=== PATIENT | male | born 1995 | race African-American/Black ===

== ENCOUNTER 2022-02-09 16:50 | Emergency (ER) | payer SELFPAY ==
[2022-02-09] VITALS (13 sets, daily range): BP systolic 132–148; BP diastolic 84–108; PULSE 109–136; RESP 17–33; TEMP 36.7; O2SAT 99–100
--- NOTE | 2022-02-09 16:58 | ED.ARRPALP ---
HPI - Arrhythmia/Palpitations General Chief Complaint: Arrhythmia/Palpitations Stated Complaint: Left Arm Tinging, Vision Issues, Heart Fast Time Seen by Provider: 02/09/22 16:58 History of Present Illness HPI narrative: Patient is a 26-year-old male presenting with palpitations. Patient states that he was walking when he started having an argument with his girlfriend. He then developed palpitations. States that his left arm feels tingly but he denies chest pain or shortness of breath. No lightheadedness. Denies recent fevers or chills, cough, abdominal pain, nausea or vomiting, diarrhea, leg swelling, dysuria. Related Data Allergies Allergy/AdvReac Type Severity Reaction Status Date / Time azithromycin Allergy Anaphylaxis Verified 02/09/22 17:33 Penicillins Allergy Anaphylaxis Verified 02/09/22 17:33 Review of Systems Review of Systems: All systems reviewed & are unremarkable except as noted in HPI and below Exam Narrative: GENERAL: Well-appearing, well-nourished, anxious appearing HEAD: Normocephalic, atraumatic. EYES: PERRLA and EOMI. ENT: Nares clear, no rhinorrhea or epistaxis. Mucous membranes moist. NECK: Supple. CHEST: Clear to auscultation. No respiratory distress. HEART: Tachycardic, regular rhythm. No murmur heard. Normal peripheral pulses. ABDOMEN: Soft, nontender, nondistended, normal active bowel sounds. EXTREMITIES: Normal range of motion. No edema. SKIN: Warm, dry, no rash. NEURO: No focal deficits. Alert and oriented x3. PSYCH: Normal mood and affect. Course Course Emergency Course: Patient is a 26-year-old male presenting with palpitations. Patient is tachycardic in the 130s to 140s. Normotensive and saturating well on room air. Exam otherwise remarkable for the above. EKG per my interpretation shows sinus tachycardia, normal axis and intervals, no ST elevations or depressions. Blood work is remarkable for elevated creatinine. Troponin is undetectable x2. Patient received fluids with improvement in his heart rate. Still mildly tachycardic in the low 100s. On reevaluation, the patient states that he feels much better. States that he has not had any water for several days. States he has been working a lot. Denies any pain or shortness of breath. Strongly advised him to increase his fluid intake. Advised PCP follow-up. Strict return precautions given. Patient discharged in stable condition. Vital Signs Vital signs: Vital Signs Temperature 98.1 F 02/09/22 16:53 Pulse Rate 135 H 02/09/22 16:53 Respiratory Rate 22 H 02/09/22 16:53 Blood Pressure 148/105 H 02/09/22 16:53 Pulse Oximetry 100 02/09/22 16:53 Temperature 98.1 F 02/09/22 16:53 Pulse Rate 109 H 02/09/22 21:33 Respiratory Rate 20 02/09/22 21:33 Blood Pressure 135/90 02/09/22 21:33 Pulse Oximetry 100 02/09/22 21:33 MDM - Arrhythmia/Palpitations Lab Data Result diagrams: 02/09/22 17:33 02/09/22 17:33 Labs: Lab Results 02/09/22 02/09/22 02/09/22 Range/Units 17:33 17:33 20:49 WBC 9.9 (4.5-10.0) K/mm3 RBC 6.12 (4.6-6.20) M/mm3 Hgb 17.6 (14.0-18.0) g/dL Hct 53.4 H (42.0-52.0) % MCV 87.3 (80-100) fl MCH 28.8 (26-34) pg MCHC 33.0 (32-36) g/dl RDW 14.5 (11.5-14.5) % Plt Count 406 H (150-375) k/mm3 MPV 9.0 (7.4-10.4) fl Immature Gran % (Auto) 0.3 (0-0.5) % Neut % (Auto) 67.6 (45.5-73.1) % Lymph % (Auto) 23.3 (18.3-44.2) % [place] % (Auto) 8.3 (2.6-8.5) % Eos % (Auto) 0.1 (0-4.4) % Baso % (Auto) 0.4 (0.2-1.2) % Lymph # (Auto) 2.30 (0.9-3.2) K/mm3 [place] # (Auto) 0.8 H (0.1-0.6) K/mm3 Eos # (Auto) 0.0 (0-0.3) K/mm3 Baso # (Auto) 0.0 (0.0-0.1) K/mm3 Abs Immat Gran (auto) 0.03 (0.00-0.031) K/mm3 Absolute Neuts (auto) 6.7 (1.3-6.7) K/mm3 Absolute Nucleated RBC 0.0 (0.0-0.012) K/mm3 Nucleated RBC % 0.0 (0.0-0.2) % Sodium 141 (137-145) mmol/L [place]
--- NOTE | 2022-02-09 17:01 | ECG_ITS ---
Measurements Intervals [place] Rate: 134 P: 49 UT: 144 QRS: 52 QRSD: 84 T: 9 QT: 290 QTc: 434 Interpretive Statements SINUS TACHYCARDIA NONSPECIFIC T-WAVE ABNORMALITY BORDERLINE ECG NO PREVIOUS ECG AVAILABLE FOR COMPARISON Electronically Signed On 02-15-2022 16:34:00 CDT by Maxx Fregoso M.D.
[2022-02-09] MEDS: SODIUM CHLORIDE 0.9% IV 1,000 ML 999 ML IV CONT ×2 (17:34→18:51)
[2022-02-09] MEDS: Please add drug allergy info to patient profile. 1 EACH XX (17:35)
[2022-02-09 17:39] LABS: Basophils Percent Auto 0.4 % (0.2-1.2); Eosinophils Percent Auto 0.1 % (0-4.4); Hematocrit 53.4 % (42.0-52.0); Hemoglobin 17.6 g/dL (14.0-18.0); Immature Granulocyte Absolute 0.03 K/mm3 (0.00-0.031); Immature Granulocyte Percent A 0.3 % (0-0.5); Lymphocytes Percent Auto 23.3 % (18.3-44.2); Mean Corpuscular Hemoglobin 28.8 pg (26-34); Mean Corpuscular Volume 87.3 fl (80-100); Monocytes Absolute Auto 0.8 K/mm3 (0.1-0.6); Monocytes Percent Auto 8.3 % (2.6-8.5); Neutrophils Absolute Auto 6.7 K/mm3 (1.3-6.7); Neutrophils Percent Auto 67.6 % (45.5-73.1); Platelet Count Result 406 k/mm3 (150-375); Red Blood Count 6.12 M/mm3 (4.6-6.20); Red Cell Distribution Width 14.5 % (11.5-14.5); White Blood Count 9.9 K/mm3 (4.5-10.0)
[2022-02-09 18:04] LABS: Alanine Aminotransferase 28 U/L (6-50); Albumin Level 4.8 g/dL (3.5-5.1); Alkaline Phosphatase 79 U/L (38-126); Anion Gap 16 mmol/L (8-16); Aspartate Amino Transferase 40 U/L (17-59); Bilirubin,Total 1.8 mg/dL (0.2-1.3); Blood Urea Nitrogen 13 mg/dL (9-20); Calcium 9.3 mg/dL (8.4-10.2); Carbon Dioxide 24 mmol/L (22-30); Chloride 101 mmol/L (98-107); Estimated CRCL calculation 89 ml/min; Estimated Glomerular Filt Rate > 60; Glucose 93 mg/dL (65-110); Magnesium 2.3 mg/dL (1.6-2.3); Sodium 141 mmol/L (137-145)
[2022-02-09 18:07] LABS: Troponin I < 0.012 ng/mL (0.000-0.034)
--- NOTE | 2022-02-09 19:15 | PC.NURSE ---
Report received from ERIC Savage. Assumed care of patient at this time.
[2022-02-09 21:15] LABS: Troponin I < 0.012 ng/mL (0.000-0.034)
== END 2022-02-09 21:35 | disposition home or self-care (01) ==
PROVIDERS: Emergency Provider Emergency Medicine
DX: R00.2 Palpitations (principal); E86.0 Dehydration
CPT/HCPCS: 36415; 80053; 83735; 84484; 85025; 93005; 96360; 96361; 99284; J7030

== ENCOUNTER 2022-02-23 16:51 | Emergency (ER) | payer OTHER, SELFPAY ==
--- NOTE | ~2022-02-23 | XR_ITS ---
EXAM: XR finger 1st LT min 2V DATE: 02/23/2022 18:00 HISTORY: avulsed laceration end of Lt thumb, cut with knife this P.M. . COMPARISON: None available. FINDINGS: Normal mineralization. No fracture or dislocation. No lytic or blastic lesion. Joint space s are maintained. No erosion or periosteal change. Bandage material obscures radiographic detail in t he frontal view. Possible laceration at the tip of the thumb. IMPRESSION: No acute osseous finding in the left thumb. Reviewed, dictated and finalized at location K.
[2022-02-23 16:52] VITALS: BP 182/85; PULSE 100; RESP 16; TEMP 36.6; O2SAT 98
--- NOTE | 2022-02-23 18:07 | ED.WOUNDLAC ---
HPI - Wound/Laceration General Chief Complaint: Wound/Laceration <Anel Cabrera PA-C - Last Filed: 02/23/22 18:44> Stated Complaint: L THUMB LACERATION <Anel Cabrera PA-C - Last Filed: 02/23/22 18:44> Time Seen by Provider: 02/23/22 17:46 <Anel Cabrera PA-C - Last Filed: 02/23/22 18:44> Source: patient <Anel Cabrera PA-C - Last Filed: 02/23/22 18:44> Mode of arrival: ambulatory <Anel Cabrera PA-C - Last Filed: 02/23/22 18:44> Limitations: no limitations <Anel Cabrera PA-C - Last Filed: 02/23/22 18:44> History of Present Illness HPI narrative: This is a 26-year-old male that presents to the emergency department for a laceration to the left first finger sustained earlier today at work. Reports he was cutting chicken and sustained a laceration that involved his nail. He is up-to-date on his tetanus vaccine. Denies decreased range of motion or numbness. <Anel Cabrera PA-C - Last Filed: 02/23/22 18:44> Related Data Allergies/Adverse Reactions: Allergies Allergy/AdvReac Type Severity Reaction Status Date / Time azithromycin Allergy Anaphylaxis Verified 02/09/22 17:33 Penicillins Allergy Anaphylaxis Verified 02/09/22 17:33 <Anel Cabrera PA-C - Last Filed: 02/23/22 18:44> Review of Systems Review of Systems: CONSTITUTIONAL: Denies fever SKIN: Reports laceration NEUROLOGIC: Denies numbness <Anel Cabrera PA-C - Last Filed: 02/23/22 18:44> All systems reviewed & are unremarkable except as noted in HPI and below <Anel Cabrera PA-C - Last Filed: 02/23/22 18:44> [facility] [place] Surgical History Surgical History: Surgical History (Updated 02/23/22 @ 18:09 by Anel Cabrera PA-C) History of tonsillectomy <Anel Cabrera PA-C - Last Filed: 02/23/22 18:44> Social History Social History: Social History (Updated 02/23/22 @ 18:09 by Anel Cabrera PA-C) Substance use: never <Anel Cabrera PA-C - Last Filed: 02/23/22 18:44> Exam Narrative: GENERAL: Well-appearing, well-nourished, and in no acute distress. HEAD: Normocephalic, atraumatic. EYES: EOMI. EXTREMITIES: Normal range of motion. No edema, erythema or active bleeding. 1cm linear laceration to the left first finger, end of that nail that is not quite through and through SKIN: Warm, dry, no rash. NEURO: No focal deficits. Alert and oriented x3. PSYCH: Normal mood and affect <Anel Cabrera PA-C - Last Filed: 02/23/22 18:44> Course REPRODUCER/PA Physician Supervision For this patient encounter, I reviewed the REPRODUCER or PA documentation, treatment plan, and medical decision making. <Kyleigh Solis MD - Last Filed: 03/12/22 13:42> Vital Signs Vital signs: Vital Signs Temperature 97.8 F 02/23/22 16:52 Pulse Rate 100 02/23/22 16:52 Respiratory Rate 16 02/23/22 16:52 Blood Pressure 182/85 H 02/23/22 16:52 Pulse Oximetry 98 02/23/22 16:52 Oxygen Delivery Room Air 02/23/22 16:52 Temperature 97.8 F 02/23/22 16:52 Pulse Rate 100 02/23/22 16:52 Respiratory Rate 16 02/23/22 16:52 Blood Pressure 182/85 H 02/23/22 16:52 Pulse Oximetry 98 02/23/22 16:52 Oxygen Delivery Room Air 02/23/22 16:52 <Anel Cabrera PA-C - Last Filed: 02/23/22 18:44> Vital Signs Temperature 97.8 F 02/23/22 16:52 Pulse Rate 100 02/23/22 16:52 Respiratory Rate 16 02/23/22 16:52 Blood Pressure 182/85 H 02/23/22 16:52 Pulse Oximetry 98 02/23/22 16:52 Oxygen Delivery Room Air 02/23/22 16:52 Temperature 97.8 F 02/23/22 16:52 Pulse Rate 100 02/23/22 16:52 Respiratory Rate 16 02/23/22 16:52 Blood Pressure 182/85 H 02/23/22 16:52 Pulse Oximetry 98 02/23/22 16:52 Oxygen Delivery Room Air 02/23/22 16:52 <Kyleigh Solis MD - Last Filed: 03/12/22 13:42> MDM - Wound/Laceration MDM Narrative Medical decision making narrative: Patient presents to the emergency department for a laceratio
== END 2022-02-23 18:59 | disposition home or self-care (01) ==
PROVIDERS: Emergency Provider Emergency Medicine
DX: S61.012A Laceration without foreign body of left thumb without damage to nail, initial encounter (principal); I10 Essential (primary) hypertension; W45.8XXA Other foreign body or object entering through skin, initial encounter; Y99.0 Civilian activity done for income or pay
CPT/HCPCS: 73140; 99283